=== PATIENT | female | born 1940 | race Caucasian/White ===

== ENCOUNTER 2019-04-28 10:05 | Outpatient (CLI) | payer MEDICARE, MEDICAID ==
--- NOTE | 2019-04-28 11:12 | MRI ---
MR the lumbar spine without contrast INDICATION: Low back pain and bilateral hip pain COMPARISON: Lumbar spine radiograph dated February 02, 2019 TECHNIQUE: Multiplanar multisequence MR images were obtained of lumbar spine without IV contrast. FINDINGS: Bone marrow: Bone marrow signal intensity appears within normal limits. Distal spinal cord and conus: Normal. The conus seen to terminate at L1. Visualized retroperitoneum and paraspinal soft tissues: Normal. Vertebral levels: L5-S1: There is a broad-based bulge with facet hypertrophy inducing mild bilateral neural foraminal n arrowing. L4-5: There is a broad-based disc osteophyte complex with facet hypertrophy and ligament flavum hyper trophy inducing severe central canal narrowing with moderate to severe right and severe left neural foraminal narrowing. L3-4: There is a broad-based disc osteophyte complex and facet joint degenerative change and ligament um flavum hypertrophy inducing severe central canal narrowing with severe right and [id number] left neural foraminal narrowing L2-3: There is a broad-based bulge with facet hypertrophy inducing mild bilateral neural foraminal na rrowing mild central canal narrowing. L1-L2: There is a broad-based bulge with facet hypertrophy inducing moderate to severe left neural fo raminal narrowing T12-L1: No appreciable central canal or neuroforaminal narrowing. IMPRESSION: 1. Severe multilevel spondylosis of the lumbar spine. 2. Severe central canal narrowing with moderate to severe right and severe left neural foraminal narr owing at L4-5. 3. Severe central canal narrowing with severe right and mild/moderate left neural foraminal narrowing at L3-4. 4. Mild central canal narrowing with mild bilateral neural foraminal narrowing at L2-3. 5. Moderate to severe left neural foraminal narrowing at L1-L2. 6. Mild bilateral neural foraminal narrowing at L5-S1.
== END 2019-04-28 10:06 | disposition home or self-care (01) ==
LOC: BICMRI 10:05
PROVIDERS: ATTEND Neurological Surgery
DX: M47.26 Other spondylosis with radiculopathy, lumbar region (principal); M48.061 Spinal stenosis, lumbar region without neurogenic claudication; M48.07 Spinal stenosis, lumbosacral region
CPT/HCPCS: 72148